=== PATIENT | female | born 1955 | race Caucasian/White ===

== ENCOUNTER → 2024-03-31 14:04 | Outpatient (REF) | payer OTHER, SELFPAY | LOC: RCS 14:04 | PROVIDERS: ATTENDING PHYSICIAN Internal Medicine; FAMILY PHYSICIAN Internal Medicine Geriatric Medicine | DX: Z95.2 Presence of prosthetic heart valve (principal); I48.0 Paroxysmal atrial fibrillation; I25.10 Atherosclerotic heart disease of native coronary artery without angina pectoris | CPT/HCPCS: 93306 ==

== ENCOUNTER → 2024-04-23 16:11 | Outpatient (REF) | payer OTHER, SELFPAY | LOC: WDC 16:11 | PROVIDERS: ATTENDING PHYSICIAN Obstetrics & Gynecology; FAMILY PHYSICIAN Family Medicine | DX: Z12.31 Encounter for screening mammogram for malignant neoplasm of breast (principal) | CPT/HCPCS: 77063; 77067 ==

== ENCOUNTER → 2025-03-04 08:30 | Outpatient (REF) | payer OTHER, SELFPAY | LOC: RCS 08:30 | PROVIDERS: ATTENDING PHYSICIAN Internal Medicine; FAMILY PHYSICIAN Internal Medicine Geriatric Medicine | DX: Z98.890 Other specified postprocedural states (principal); I48.0 Paroxysmal atrial fibrillation; I25.10 Atherosclerotic heart disease of native coronary artery without angina pectoris | CPT/HCPCS: 93017; 93350 ==

== ENCOUNTER 2025-04-14 12:14 | Emergency (ER) | payer OTHER, SELFPAY ==
[2025-04-14 12:18] VITALS: BP 125/63
--- NOTE | 2025-04-14 12:58 | ED.GENMED ---
History of Present Illness
General
Chief Complaint: Musculo-Skeletal Complaint
Time Seen by Provider: 04/14/25 12:28
History of Present Illness
History of Present Illness:
70 yo female presents to the Emergency Department for evaluation of R hip pain x 2 days. Denies known injury, but states that she has been moving heavy objects in the house by sliding them with her right leg. Works as a hospital unit secy.
She has substantial difficulty walking due to pain. Pain does not radiate, no associated fever/chills/sweats. No urinary symptoms or abdominal pain. Takes dabigatran thus has only been using acetaminophen at home
Past History
Past History
ED Past Medical History: None
ED Past Surgical History: Cardiac (Mitral valve repair)
Social History
Tobacco: Non-smoker
Alcohol: None
Drug: None
Family History
Family History: Negative Early CAD or CAD
Review of Systems
Review of Systems
Allergies reviewed?: Yes
All Other Systems: ROS reviewed and negative except as documented in HPI and ROS
Phy Exam
Physical Exam
Physical Exam:
GEN: Well appearing, NAD, WDWN
HEENT: Oral mucosa moist, no scleral icterus
Cardiac: Regular rate
Lung: No respiratory distress, no tachypnea
MSK: No gross deformity or injuries. PROM of right hip intact, although internal/external rotation elicits pain. No palpable reproducible tenderness. No inguinal adenopathy. No RLE edema
Skin: Good color, no pallor or jaundice, no rashes
Neuro: AO x3, moves all extremities freely
Psych: Calm, cooperative
Course
Orders/Labs/Results
Orders:
Orders
04/14/25 12:41
CR Hip - RT w/wo Pel 2-3 Vw* Urgent
Comment:
Reason For Exam: R hip pain
Include a pelvis x-ray?: No
04/14/25 13:51
Tramadol HCl [Ultram] 50 mg PO NOW STA
Vital Signs
Initial and Last Documented VS:
Initial Vital Signs
Temp Pulse Resp BP Pulse Ox
98.4 F 85 18 125/63 99
04/14/25 12:18 04/14/25 12:18 04/14/25 12:18 04/14/25 12:18 04/14/25 12:18
Last Documented Vital Signs
Temp Pulse Resp BP Pulse Ox
98 F 75 16 143/64 98
04/14/25 14:20 04/14/25 14:20 04/14/25 14:20 04/14/25 14:20 04/14/25 14:20
MDM/Problems Addressed
MDM/Problems Addressed:
Pain is likely MSK etiology, particularly given the calcific tendinitis seen on XR and exam revealing increased pain w/ ROM. No skin changes to suggest infectious etiology. No fever. cannot take NSAIDs due to use of dabigatran. Will provide opiate
analgesia and recommend Ortho f/u if worsening
*Pulse Oximetry
SaO2: 99
Oxygen Mode of Delivery: Room air
Patient hypoxic: no
*Critical Care Note
Total Time (30-74mins, 75-104mins- exclusive of procedures): Not Applicable
ED Attending Note
-
Portions of this chart may have been created with voice recognition software.� Occasional wrong word or��sound alike� substitutions may have occurred due to the inherent limitations of voice recognition software.
Discharge Plan
Departure
Patient Disposition: Home (Routine Discharge)
Date of Disposition: 04/14/25
Time of Disposition: 13:52
Patient with high blood pressure during this ER visit?: No
Discharge Problem:
Acute pain of right hip
Instructions: Hip pain - ED (DC)
Prescriptions:
New
tramadol 50 mg tablet
25 - 50 mg PO Q8H PRN (Reason: Pain) Qty: 8 0RF
No Action
Vitamin C
1 tab PO DAILY
Rx Instructions:
Pt does not take consistently daily.
coenzyme Q10 [CoQ-10] 100 mg Capsule
100 mg PO DAILY
magnesium 200 mg Tablet
200 mg PO HS
elderberry fruit 350 mg Capsule
200 mg PO DAILY
atorvastatin 20 mg Tablet
20 mg PO SUWEFR
cholecalciferol (vitamin D3) [Vitamin D3] 25 mcg (1,000 unit) Capsule
25 mcg PO DAILY
metoprolol succinate 25 mg tablet extended release 24 hr
25 mg PO HS
warfarin [Jantoven] 2 mg Tablet
2 mg PO ONCE@1800 Qty: 30 2RF
amiodarone [Pacerone] 200 mg tablet
200 mg PO BID Qty: 60 1RF
furosemide [Lasix] 20 mg tablet
20 mg PO DAILY Qty: 5 0RF
potassium chloride [potassium chloride] 10 mEq tablet,ER particles/crystals
10 meq PO DAILY Qty: 5 0RF
sennosides-docusate sodium [Senna Plus] 8.6-50 mg Tablet
1 tab PO Q12 Qty: 10 0RF
pantoprazole 40 mg Tablet,Delayed Release (Dr/Ec)
40 mg PO DAILY Qty: 30 0RF
acetaminophen 325 mg Tablet
650 mg PO Q6HPRN PRN (Reason: mild pain,headache,temp >101F ) Qty: 0 0RF
tramadol 50 mg Tablet
25 mg PO Q6HPRN PRN (Reason: moderate pain) Qty: 5 0RF
aspirin 81 MG tablet,chewable
81 mg PO DAILY Qty: 0 0RF
Referrals:
Stefany Greco DO [Family Provider, Family Practice]
Nacho Viera MD [Active, Orthopedics]
Interventions
Interventions:
*Risk Screen - Suicide Last Done: 04/14/25 12:18
*General Assessment Last Done: 04/14/25 14:20
*Neglect/Abuse Screening Last Done: 04/14/25 14:20
*ED- Fall Risk Assessment Last Done: 04/14/25 14:20
*ED COVID-19 Vaccine History Last Done: 04/14/25 12:18
*ED Influenza Vaccine History Last Done: 04/14/25 14:20
*Nursing Disposition Last Done: 04/14/25 14:20
ED-Musculoskeletal Assessment Last Done: 04/14/25 14:20
Discharge Date and Time
Discharge Date/Time: 04/14/25 14:20
Print Language: BRAZILIAN
[2025-04-14] MEDS: ULTRAM 50 MG PO (14:10)
[2025-04-14 14:20] VITALS: BP 143/64
== END 2025-04-14 14:20 | disposition home or self-care (01) ==
LOC: EMR 12:14
PROVIDERS: EMERGENCY PHYSICIAN Student in an Organized Health Care Education/Training Program; FAMILY PHYSICIAN Family Medicine
DX: M25.551 Pain in right hip (principal); Z79.01 Long term (current) use of anticoagulants
CPT/HCPCS: 99283; 73502

== ENCOUNTER → 2025-04-21 09:58 | Outpatient (REF) | payer OTHER, SELFPAY | LOC: RCS 09:58 | PROVIDERS: ATTENDING PHYSICIAN Internal Medicine; FAMILY PHYSICIAN Family Medicine | DX: Z95.2 Presence of prosthetic heart valve (principal); I25.10 Atherosclerotic heart disease of native coronary artery without angina pectoris; I25.2 Old myocardial infarction; R06.00 Dyspnea, unspecified | CPT/HCPCS: 93306 ==

== ENCOUNTER → 2025-04-29 15:55 | Outpatient (REF) | payer OTHER, SELFPAY | LOC: WDC 15:55 | PROVIDERS: ATTENDING PHYSICIAN Internal Medicine Geriatric Medicine | DX: Z12.31 Encounter for screening mammogram for malignant neoplasm of breast (principal) | CPT/HCPCS: 77063; 77067 ==